=== PATIENT | female | born 1970 | race Two or more races ===

== ENCOUNTER 2023-04-17 08:10 | Day surgery (SDC) | payer OTHER ==
[2023-04-16 10:20] VITALS: BMI 25.0
[2023-04-17 08:44] VITALS: RESP 18
[2023-04-17] MEDS ORDERED: BUPIVACAINE HCL/PF 0.25% (2.5MG/ML) 10 ML VIAL ONE (08:49)
[2023-04-17] MEDS ORDERED: FENTANYL CITRATE/PF 50 MCG/ML VIAL ONE (09:04)
[2023-04-17] MEDS ORDERED: MIDAZOLAM HCL 2 MG/2 ML SINGLE DOSE VIAL ONE (09:04)
[2023-04-17] MEDS ORDERED: ONDANSETRON 4 MG/2 ML VIAL ONE ×2 (09:05→10:00)
[2023-04-17] MEDS ORDERED: KETOROLAC TROMETHAMINE 30 MG/1 ML VIAL ONE (09:05)
[2023-04-17] MEDS: BUPIVACAINE HCL/PF 0.25% (2.5MG/ML) 10 ML VIAL IJ ONE (09:47)
[2023-04-17] MEDS ORDERED: ceFAZolin SODIUM 1 GM VIAL ONE (10:00)
[2023-04-17] MEDS ORDERED: PROPOFOL 20 ML ONE (10:00)
[2023-04-17 10:31] VITALS: TEMP 97.4
[2023-04-17 11:04] VITALS: BP 121/79; PULSE 77
== END 2023-04-17 11:50 | disposition home or self-care (01) ==
LOC: FASU 08:10
PROVIDERS: ATTEND Orthopaedic Surgery Hand Surgery
PROC: 0PSV34Z Reposition Left Finger Phalanx with Internal Fixation Device, Percutaneous Approach (ICD-10-PCS; principal; 2023-04-17 09:30)
DX: S62.623A Displaced fracture of middle phalanx of left middle finger, initial encounter for closed fracture (principal); X58.XXXA Exposure to other specified factors, initial encounter; Y92.9 Unspecified place or not applicable; Y93.9 Activity, unspecified
CPT/HCPCS: 73130-TC-LT-FY